=== PATIENT | female | born 1955 | race Caucasian/White ===

== ENCOUNTER → 2016-12-13 | Day surgery (SDC) | payer OTHER ==
[~2016-12-13] MED LIST: ACETAMINOPHEN 1000 MG/100 ML VIAL IV ONE; ACETAMINOPHEN/HYDROcodone 325 MG/5 MG TAB ONE; BACITRACIN IM FOR SOLN 50,000 UNIT VIAL ONE; BUPIVACAINE/EPINEPHRINE 0.25% 50 ML VIAL ONE; GENTAMICIN SULFATE 80 MG/2 ML VIAL ONE; KETOROLAC TROMETHAMINE 30 MG/ML (IVP) VIAL IV PUSH ONE; LACTATED RINGER'S 1000 ML INJ 1,000 ML ONE; LIDOCAINE 1%/EPINEPHrine 1:200,000 PF SOLN 30 ML VIAL ONE; MIDAZOLAM HCL 2 MG/2 ML VIAL ONE; MORPHINE SULFATE 4 MG/ML INJ ONE; ONDANSETRON HCL 4 MG/2 ML VIAL IV PUSH ONE; PROPOFOL 200 MG/20 ML AMP IV ONE; SODIUM CHLORIDE 0.9% 20 ML VIAL ONE; ceFAZolin INJ 1,000 MG VIAL ONE
--- NOTE | 2016-12-13 12:11 | TN ---
cc: ONI WEBB M.D. DATE OF SURGERY 12/13/2016 PREOPERATIVE DIAGNOSIS Wishes breast enhancement. POSTOPERATIVE DIAGNOSIS Wishes breast enhancement. PROCEDURE Augmentation mammoplasty. SURGEON Oni Webb MD, [facility] ANESTHESIA LMA general, local ESTIMATED BLOOD LOSS Minimal COMPLICATIONS None IMPLANT DATA, PLACEMENT AND TECHNIQUE Inframammary retroperitoneal cohesive Orin Inspira volume 330 cc, serial number of the right breast implant device [id number] and implant for the left breast implant device [id number]. PROCEDURE She was properly consented, marked, properly anesthetized. Her skin was sterilized with Betadine solution and sterile draping applied. Isolation of the nipple-areolar was done with Tegaderm. Utilizing a 4-1/2 to 5 cm inframammary fold, the retroperitoneal plane was developed and the release of the inferomedial fibers of the pectoris major muscle were done. After assuring meticulous hemostasis, irrigation with triple antibiotic solution ensued. Isolation of the skin was done utilizing Tegaderm. The contralateral side was approached in exactly the same manner and utilizing a no-touch technique, the implant was introduced without any difficulty. With this, I proceeded to perform exactly the same procedure on the contralateral side. The patient was sat up achieving best symmetry possible. We proceeded to close the wounds with multiple 2-0 Monocryl suture layers on Madelyn fascia, dermis, and subcu. Absorbent Mastisol and Steri-Strips were applied and a snug brassiere was applied. Overall, the patient tolerated the procedure well. She was awakened and extubated in the operating room and transferred back to the postanesthesia care unit in stable conditions. No complications appreciated. The patient tolerated the procedure fairly well. MD YARON Hand/FLORA /11:34 AM /12:01 PM
== END | disposition home or self-care (01) ==
LOC: ESDC 09:08
PROVIDERS: ATTEND Plastic Surgery
DX: Z41.1 Encounter for cosmetic surgery (principal)
CPT/HCPCS: 00402; 19325; C1789; J0131; J0690; J1580; J1885; J2250; J2270; J2405; J3010; J7120